=== PATIENT | female | born 1950 | race Caucasian/White ===

== ENCOUNTER 2020-06-27 21:12 | Emergency (ER) | payer MEDICARE, BC ==
[2020-06-27] MEDS ORDERED: MECLIZINE HCL 12.5 MG TAB PO ONE (21:28)
[2020-06-27] MEDS ORDERED: IPRATROPIUM/ALBUTEROL 3 ML VIAL NEB ONE (21:28)
[2020-06-27] MEDS ORDERED: ALBUTEROL SULFATE 2.5 MG/3 ML VIAL NEB ONE (21:28)
[2020-06-27] MEDS ORDERED: levoFLOXacin 750MG IV 750 MG in PREMIX BAG 1 BAG IVPB ONE (21:29)
--- NOTE | 2020-06-27 21:34 | ED.PDOC ---
History of Present Illness - General Time Seen by Provider: 06/27/20 21:27 Additional Information: Patient is a 69-year-old female who presents to the ED via EMS from intermediate with chief complaint of shortness of breath. Patient indicates that approximately 4 months ago she had a valve replaced and had postoperative complications. She became septic and was on a ventilator for a prolonged period of time and was trached. Patient is in a intermediate currently and she has had shortness of breath for at least the past 4 weeks. Her symptoms are constant and gradually worsening over the past 4 weeks. Today patient had a chest x-ray done and it was read as possible vascular congestion and patient requested to come to the emergency department for evaluation of congestive heart failure. Patient indicates she does not have a history of CHF or CAD. 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 Patient reports no worsening of this discoloration or pain. Patient denies fever, chills, chest pain, nausea, vomiting. - History of Present Illness Allergies/Adverse Reactions: Allergies Penicillins Allergy (Verified 06/27/20 21:16) Review of Systems - Review of Systems Constitutional: States: weakness. Denies: chills, fever EENTM: States: no symptoms reported Respiratory: States: short of breath. Denies: cough Cardiology: Denies: chest pain, palpitations Gastrointestinal/Abdominal: States: no symptoms reported. Denies: abdominal pain, nausea, vomiting Genitourinary: Denies: dysuria Skin: States: see HPI All other Systems: Reviewed and Negative Family Medical History - Family History Mother Family History: Unknown Physical Exam - Physical Exam General Appearance: Alert, Anxious, Obvious distress, Other - Thin body habitus Neck: full range of motion, supple, other - Patient with a patent tracheostomy in her anterior neck Respiratory: respiratory distress - mild-moderate, accessory muscle use, rhonchi Cardiovascular/Chest: regular rate, rhythm, no murmur, tachycardia Gastrointestinal/Abdominal: normal bowel sounds, non tender, soft Extremity: normal range of motion, non-tender, no pedal edema, other - Fingertips of patient's right second third and fourth fingers are completely black and hard with a clearly demarcated border with viable tissue. Nontender, no edema, erythema or tenderness to palpation. Fingertips left hand status post amputation. Skin Exam: normal color, warm/dry Progress - Progress Progress: 06/27/20 21:37 Differential diagnosis includes but is not limited to CHF, ACS, pneumonia, COVID, PE. 06/27/20 21:38 EKG: Sinus tachycardia, rate 106, normal QRS, left axis, LBBB, ST and T wave changes consistent with LBBB, negative STEMI. No old EKGs for comparison. 06/28/20 00:29 Patient reassessed and is feeling better at this time after having been on oxygen. She is still tachypnea with coarse breath sounds but is not in respiratory distress.. Patient's d-dimer was elevated but her CT does not show PE but does show loculated pleural effusions. This is patient's first ED visit here and I have no old records to review but patient tells me that she had a complicated postoperative course with some type of a lung procedure following her valve replacement and I suspect that there is a chronic component to patient's CT findings. Patient's BNP today is elevated at 1500 and patient tells me she does not have a history of CHF. Patient has orthopnea and I suspect that she may be in new onset CHF. We have given Lasix and patient will require transfer to a higher level of care for cardiology evaluation. Patient has been cultured and given IV antibiotics. She does not have a fever and clinically I do not suspect sepsis. She is COVID negative. I have spoken with Dr. Gonzáles, ED physician at [facility], who accepts patient ED to ED transfer. Patient is stable and medically clear for transfer at this time. I have spoken with patient's son who is the warehouse driver at [facility] and he is made aware of his mom's situation and he requests that patient be transferred to [facility]. Departure - Departure Clinical Impression: Loculated pleural effusion CHF (congestive heart failure) Qualifiers: Heart failure type: unspecified Heart failure chronicity: acute Qualified Code(s): I50.9 - Heart failure, unspecified Time of Disposition: 00:34 Disposition: Transfer to Hospital Condition: Fair Transfer to Outside Facility - Transfer Information Decision to Transfer Date: 06/28/20 Decision to Transfer Time: 00:34 Reason for Transfer: required specialist not available Accepting Provider:: Dr. Gonzáles Accepting Facility: [facility]
--- NOTE | 2020-06-27 21:50 | RAD ---
EXAM DESCRIPTION: Chest,1 View CLINICAL HISTORY: 69 years Female SOB COMPARISON: 06/27/2020. FINDINGS: Cardiac size is unchanged. Infiltrate in the right upper lobe with pleural thickening. Findings may be related to infectious process but the possibility of an underlying mass should be considered particularly given the retraction and thickening of the adjacent pleura Prominence of the interstitial markings which appears similar to the previous and may reflect edema. Basilar atelectasis. IMPRESSION: Unchanged interstitial infiltrate that may reflect edema Irregular density in the lateral right upper lobe with associated pleural thickening and retraction. Findings may be related to infiltrate and loculated fluid with possible liver mass should be considered. Recommend contrast-enhanced CT of the chest Electronically signed by: Nemo Chow MD 06/27/2020 9:48 PM CDT
[2020-06-27] MEDS ORDERED: FUROSEMIDE INJ 40 MG/4 ML VIAL IV ONE (22:38)
--- NOTE | 2020-06-27 23:36 | CT ---
EXAM: CTA Chest HISTORY: SOB, elevated DD COMPARISON: 06/27/2020 TECHNIQUE: Contiguous axial CTA images of the chest were obtained from the thoracic inlet to the upper abdomen after administration of intravenous contrast followed by multiplanar reformats. 3-D postprocessing was performed. This exam was performed according to our departmental dose-optimization program, which includes automated exposure control, adjustment of the mA and/or kV according to patient size and/or use of iterative reconstruction technique. FINDINGS: Centrilobular emphysema with bullous changes. There is dense peripheral right upper lobe subpleural consolidation with associated volume loss, scarring/retraction and bronchiectasis. There are also bilateral pleural effusions, which appear to be loculated. There is bilateral lower lobe compressive atelectasis. Bilateral calcified lung granulomata are also noted. No pneumothorax. There is adequate opacification of the pulmonary arterial vasculature. There is no evidence of pulmonary embolus. Cardiomegaly. Central airways are patent. No pericardial effusion or evidence of right heart strain. Endotracheal tube in satisfactory position. Intact midline sternotomy wires. Limited visualization of abdominal contents unremarkable. No destructive osseous lesion. IMPRESSION: 1. No evidence of pulmonary embolus. 2. Peripheral right upper lobe consolidative process with volume loss/retraction and bronchiectasis, likely chronic pleural parenchymal scarring however underlying malignant process cannot entirely be excluded on the basis of this exam and either short interval follow-up or PET CT is advised. 3. Bilateral pleural effusions with compressive atelectasis, which appear loculated. 4. Extensive centrilobular emphysema with bullous changes. 5. Cardiomegaly. 6. Satisfactory position of endotracheal tube. Electronically signed by: Jonel Shields MD 06/27/2020 11:34 PM CDT
[2020-06-28 01:06] VITALS: BP 108/75; O2SAT 94
[2020-06-28 01:41] VITALS: TEMP 98
== END 2020-06-28 01:18 | disposition short-term general hospital (02) ==
LOC: ER 21:12
DX: I50.9 Heart failure, unspecified (principal); I44.7 Left bundle-branch block, unspecified; R00.0 Tachycardia, unspecified; Z20.828 Contact with and (suspected) exposure to other viral communicable diseases; Z93.0 Tracheostomy status; Z95.2 Presence of prosthetic heart valve; Z88.0 Allergy status to penicillin
CPT/HCPCS: 36600; 71045; 71275; 80053; 82803; 82805; 83605; 83880; 84484; 85025; 85379; 85610; 87040; 87486; 87581; 87633; 87635; 93005; 94640; J1940; J1956; J2060; J7620